=== PATIENT | female | born 1950 | race American Indian/Alaskan Native ===

== ENCOUNTER 2020-12-10 07:29 | Day surgery (SDC) | payer MEDICARE ==
[2020-12-10] MEDS ORDERED: ASPIRIN EC 325 MG TAB PO NR (08:29)
[2020-12-10] MEDS ORDERED: SODIUM CHLORIDE 0.9% 500 ML 500 ML ONE (08:32)
[2020-12-10 08:57] LABS: Basophils % (Auto) 0.8 % (0.0-1.8); Eosinophils # (Auto) 0.1 K/mm3 (0.0-0.4); Eosinophils % (Auto) 1.6 % (0.0-4.3); Hematocrit 39.9 % (30.3-42.9); Hemoglobin 13.5 gm/dl (10.1-14.3); Lymphocytes # (Auto) 1.8 K/mm3 (1.2-5.4); Lymphocytes % (Auto) 40.1 % (13.4-35.0); Mean Corpuscular HGB Conc 34 % (30-34); Mean Corpuscular Volume 90 fl (79-97); Monocytes # (Auto) 0.3 K/mm3 (0.0-0.8); Monocytes % (Auto) 7.5 % (0.0-7.3); Platelet Count 233 K/mm3 (140-440); Red Blood Count 4.42 M/mm3 (3.65-5.03); Red Cell Distribution Width 12.9 % (13.2-15.2)
[2020-12-10] MEDS ORDERED: SODIUM CHLORIDE 0.9% 500 ML 500 ML IV SCH (09:00)
[2020-12-10 09:21] LABS: INR 0.97 (0.87-1.13)
[2020-12-10 09:32] LABS: BUN/Creatinine Ratio 11; Blood Urea Nitrogen 10 mg/dL (7-17); Calcium 9.9 mg/dL (8.4-10.2); Hemolysis Index 1
[2020-12-10] MEDS ORDERED: HEPARIN/NS 5000 UNIT/500ML 1,000 ML IR ONE (09:32)
[2020-12-10] MEDS: fentaNYL 100 MCG/2 ML INJ ONE ×2 (10:05→10:17)
[2020-12-10] MEDS: HEPARIN 10,000 UNITS/10 ML VIAL ONE ×2 (10:06→10:20)
[2020-12-10] MEDS: MIDAZOLAM 2 MG/2 ML INJ ONE ×2 (10:06→10:17)
[2020-12-10] MEDS: VERAPAMIL 5 MG/2 ML INJ ONE ×2 (10:06→10:20)
[2020-12-10] MEDS: LIDOCAINE (2%) 20 MG/1 ML VIAL 20 ML MDV INFILTRATI ONE ×2 (10:06→10:19)
--- NOTE | 2020-12-10 11:01 | Cardiac Catherization Report ---
INDICATION FOR PROCEDURE: The patient is a 70-year-old female with history of hypertension, hyperlipidemia with abnormal stress EKG suggestive of ischemia, is scheduled for cardiac catheterization for evaluation of atypical chest pains. The patient is aware of the procedure, potential complications and alternatives of therapy available. DESCRIPTION OF PROCEDURE: The patient was brought to the catheterization laboratory in a fasting condition. The patient was evaluated for moderate sedation and was felt to be appropriate candidate for moderate sedation. Received IV Versed and fentanyl. Subsequently, the patient was prepared in a standard fashion and sterile drapes were applied. Local anesthesia was achieved in the right wrist area and right radial artery puncture was made using 21-gauge arterial puncture needle. A 5-Ukrainian slender sheath was introduced. A 5-Ukrainian multipurpose catheter was used to enter the left ventricle with the help of guidewire. It is to be noted difficult to manipulate the catheter. Left ventriculogram was performed in CORONADO projection using hand injection. Subsequently, JL3.5 catheter was used to obtain the angiograms of the left coronary artery and 5F TIG catheter was used to obtain the angiograms of the right coronary artery. At the end of the procedure, catheter and sheath were removed. Hemostasis was achieved with application of radial band. The patient tolerated the procedure well. The patient was monitored throughout the procedure using EKG monitoring, hemodynamic monitoring and pulse oximetry. The patient tolerated moderate IV sedation well. The patient's sedation monitoring started at 10:17 a.m. and ended at 10:37 a.m. The patient was transferred to the room in stable condition. Following findings were noted. HEMODYNAMICS: 1. Opening aortic pressure 154/58, left ventricular pressure 160/17. No gradient across the aortic valve. Estimated ejection fraction 50-55%. 2. Left ventriculogram done in CORONADO projection showed normal sized left ventricle with normal contractility. Only limited amount of dye was injected. Ejection fraction was felt to be around 50-55%. Mitral regurgitation could not be evaluated because of limited amount of dye injected. 3. Right coronary artery dominant vessel, probably 2 mm in size, angiographically smooth and normal, arises normally from right coronary cusp. 4. Left coronary artery arises normally from left coronary cusp. Mild calcifications noted in the left main, proximal LAD area. Left main without significant disease. LAD shows 10-20% smooth eccentric lesion in the proximal part. Rest of the LAD, which curves around the apex and its branch are angiographically smooth and normal. Similarly, circumflex artery and its branch are angiographically smooth and normal. FINAL IMPRESSION: 1. Normal sized left ventricle with normal contractility with end diastolic pressure upper limits of normal. Mitral regurgitation could not be evaluated. 2. Mild 10-20% smooth proximal LAD lesion noted. Otherwise, rest of the coronaries are angiographically smooth and normal. It is to be noted the patient's right radial artery appears to be a small caliber and difficult to manipulate the catheter. However, the procedure was uncomplicated. No untoward complications were noted. Findings were explained to the patient. Will be continued on risk factor modification and medical therapy. JOB# [id number] GODFREY/FLAKITO EASTMAN
--- NOTE | 2020-12-10 11:36 | Short Stay Summary ---
Short Stay Documentation Date of service: 12/10/20 - History H&P: obtained from office - Allergies and Medications Current Medications: Allergies No Known Allergies Allergy (Unverified 12/10/20 08:29) Home Medications Medication Instructions Recorded Confirmed Last Taken Type Amoxicillin [Trimox CAP] 500 mg PO Q8H 12/10/20 12/10/20 12/09/20 History 1 tab Ibuprofen [Motrin] 600 mg PO Q8H PRN 12/10/20 12/10/20 Unknown History Pantoprazole [Protonix] 40 mg PO QDAY 12/10/20 12/10/20 12/09/20 History 1 tab Pravastatin 20 mg PO DAILY 12/10/20 12/10/20 12/09/20 History 1 tab Temazepam 1 cap PO QHS PRN 12/10/20 12/10/20 12/09/20 History 1 tab Triamterene/Hydrochlorothiazid 37.5 mg PO DAILY 12/10/20 12/10/20 12/09/20 History [Triamterene-Hctz 37.5-25 mg Tb] 1 tab Active Medications Sodium Chloride (Nacl 0.9% 500 Ml) 500 mls @ 50 mls/hr IV DIRECT ASHLEY Stop: 12/10/20 18:59 Last Admin: 12/10/20 08:58 Dose: 50 mls/hr Documented by: - Brief post op/procedure progress note Date of procedure: 12/10/20 Pre-op diagnosis: abnormal stress test Post-op diagnosis: other (mild CAD) Anesthesia: local Estimated blood loss: none Condition: stable - Disposition Condition at discharge: Good Disposition: [id number] TO HOME OR SELFCARE - Discharge Diagnoses (1) Mild CAD Status: Chronic (2) HTN (hypertension) Status: Chronic (3) Hyperlipidemia Status: Chronic Short Stay Discharge Plan Activity: advance as tolerated Diet: low fat, low cholesterol, low salt Wound: open to air, keep clean and dry, per your surgeon's advice Follow up with: CHRIS OLGUIN MD [Primary Care Provider] - 7 Days
[2020-12-10 15:36] VITALS: BP 137/74
== END 2020-12-10 07:30 | disposition home or self-care (01) ==
LOC: CATHLABREC 07:29
PROVIDERS: ATTEND Internal Medicine
DX: R94.39 Abnormal result of other cardiovascular function study (principal); R07.89 Other chest pain; I25.10 Atherosclerotic heart disease of native coronary artery without angina pectoris; I10 Essential (primary) hypertension; E78.5 Hyperlipidemia, unspecified; Z98.51 Tubal ligation status; Z79.899 Other long term (current) drug therapy; Z88.6 Allergy status to analgesic agent; Z98.890 Other specified postprocedural states
CPT/HCPCS: 36415; 80048; 85025; 85610; 85730; 93005; 93458; 99156; C1887; C1894; J1644; J2250; J3010; J7040; Q9967